=== PATIENT | female | born 1985 | race Caucasian/White ===

== ENCOUNTER 2019-06-26 06:03 | Inpatient (IN) | payer BC ==
[~2019-06-26 06:03] MED LIST: Buffered Lidocaine 1% SYRIN* 1 ML/SYRINGE INTRADERM ONE; Lactated Ringers 1000 ML Bag* 1,000 ML IV SCH; Sodium Citrate/Citric Acid* 15 ML UDC PO ONE
[2019-06-26] MEDS ORDERED: ceFOXitin 2 GM IVPREMIX* 2 GM/50 ML BAG IVPB ONE (07:00)
[2019-06-26] MEDS ORDERED: Lactated Ringers 1000 ML Bag* 1,000 ML IV SCH ×2 (07:00→10:00)
[2019-06-26 07:07] LABS: Urine Benzodiazepine Screen None Detected (None Detect); Urine Opiates Screen None Detected (None Detect)
[2019-06-26] MEDS ORDERED: OXYTOCIN* 10 UNITS/ML 1 ML VIAL ONE ×2 (07:38→08:39)
[2019-06-26] MEDS ORDERED: Morphine PF AMP (0.5MG/ML)* 5 MG/10 ML AMP ONE (07:38)
[2019-06-26] MEDS ORDERED: diPHENhydraMINE IV* 50 MG/ML 1 ml VIAL (BENADRYL) ONE (08:39)
[2019-06-26] MEDS ORDERED: Bupivacaine 0.5% SDV PF* 30ML VIAL ONE (08:39)
[2019-06-26] MEDS ORDERED: Ondansetron INJ* 2 MG/ML VIAL ONE (08:39)
[2019-06-26] MEDS ORDERED: fentaNYL* 50 MCG/ML 2 ML VIAL (100 MCG VIAL) IV PRN (08:48)
[2019-06-26] MEDS ORDERED: Levalbuterol 0.63MG/3ML NEB* UNIT OF USE INH PRN (08:48)
[2019-06-26] MEDS ORDERED: Naloxone* 0.4 MG/ML 1 ML VIAL IV PRN ×2 (08:48→08:56)
[2019-06-26] MEDS ORDERED: Ketorolac INJ* 30 MG/ML 1 ML VIAL ONE (08:50)
[2019-06-26] MEDS ORDERED: diPHENhydraMINE IV* 50 MG/ML 1 ml VIAL (BENADRYL) IV PRN (08:56)
[2019-06-26] MEDS ORDERED: DiMENhydriNATE IV* 50 MG/ML VIAL IV PUSH PRN (08:56)
[2019-06-26] MEDS ORDERED: HYDROcodone/ACETAMIN 5-325 MG* 1 TAB PO PRN ×2 (08:56)
[2019-06-26] MEDS ORDERED: Nalbuphine* 10 MG/ML 1 ML VIAL IV PRN (08:56)
[2019-06-26] MEDS ORDERED: Scopolamine 1.5 mg* PATCH TRANSDERM PRN (08:56)
[2019-06-26] MEDS ORDERED: PROCHLORPERAZINE INJ 5 MG/ML 2 ML VIAL IV PRN (08:56)
[2019-06-26] MEDS ORDERED: Ondansetron INJ* 2 MG/ML VIAL IV PRN (08:56)
[2019-06-26] MEDS ORDERED: Ketorolac INJ* 30 MG/ML 1 ML VIAL IV SCH (09:00)
[2019-06-26] MEDS ORDERED: Dibucaine 1% 28.35 GM TUBE PR PRN (09:12)
[2019-06-26] MEDS ORDERED: RHO D Immune Globulin (HUMAN)* 300 MCG = 1,500 I.U. INJ IM ONE (09:12)
[2019-06-26] MEDS ORDERED: Zolpidem TAB* 5 MG PO PRN (09:12)
[2019-06-26] MEDS ORDERED: Witch Hazel PAD* JAR TOPICAL PRN (09:12)
[2019-06-26] MEDS ORDERED: Glycerin ADULT SUPP PR PRN (09:12)
[2019-06-26] MEDS ORDERED: Tetan/Diph/Pertus SYR(Tdap)* 0.5 ML SYR(BOOSTRIX) use SYR contains LATEX IM ONE (09:12)
[2019-06-26] MEDS ORDERED: Oxytocin in LR* 20 UNITS/1,000 ML BAG IVPB SCH (10:00)
--- NOTE | 2019-06-26 10:39 | OP ---
DATE OF OPERATION: 06/26/19 - ROOM #116 DATE OF : 89 SURGEON: Alf Lynch MD FOOD ORDER EXPEDITER: Shanna Devi CNM ANESTHESIA: Spinal with Duramorph. PRE-OP DIAGNOSIS: Previous section and desires permanent sterilization. POST-OP DIAGNOSIS: Previous section and desires permanent sterilization. OPERATIVE PROCEDURES: Low transverse section and bilateral tubal ligation. FINDINGS: This is a 34-year-old 5, para 2 with a previous section, who desired to have no more children after this one. At the time of , she had a viable male, Apgars were 9 and 9. Weight was 7 pounds and 12 ounces. Weight was 3529 grams. Normal appearing uterus, fallopian tubes and ovaries. Of note, there was a double nuchal cord and a true knot in the cord. DESCRIPTION OF PROCEDURE: The patient was identified and procedure identified as a low transverse section. The patient was taken to the operating room and prepped and draped in the usual fashion in the left lateral recumbent position under spinal anesthesia. A Pfannenstiel incision made through the old incision and carried down through fat, fascia, and peritoneum. A transverse incision was made in the lower uterine segment and extended laterally using the blunt dissection. The above infant was delivered through the incision with ease. The cord was doubly clamped and cut, and the infant was handed to the awaiting after school program assistant. Cord blood was obtained. Placenta delivered manually. The uterus was wiped out with a wet lap sponge. The uterine incision was then closed using 0 Polysorb in a running fashion. A second layer was used to imbricate the first layer. Good hemostasis was verified. The uterus was closed with 0 Polysorb in a running fashion. A second layer was used to imbricate the first layer. Good hemostasis was verified. The right fallopian tube was grasped at its fimbriated end and ligated x2 and the fimbria on the right was excised. The same procedure was carried on left after following it out to its fimbriated end. Good hemostasis was verified. The uterus was placed back into the abdominal cavity. All sites of operation including the tubal sites were reinspected. Found to be hemostatic. The peritoneum was then closed using 3-0 Polysorb in a running fashion. Good hemostasis in the subrectus layers. The fascia was closed using 0 Polysorb in a running fashion. Hemostasis was achieved in the subcu. Copious irrigation was utilized and suctioned out. The subcutaneous tissue was closed using 3-0 Vicryl in a simple fashion and the skin was closed in a subcuticular using 4-0 Monocryl. All sponge and instrument counts were correct and the patient returned to the recovery room in stable condition. [id number]/[facility] #: [id number] [facility]
[2019-06-26] MEDS: Simethicone TAB* 80 MG TAB.CHEW PO SCH ×3 (15:03→21:02)
[2019-06-26] MEDS: Ketorolac INJ* 30 MG/ML 1 ML VIAL IV SCH ×2 (15:07→21:01)
[2019-06-26] MEDS: Docusate CAP* 100 MG PO SCH ×2 (15:07→21:02)
[2019-06-26] MEDS: Acetaminophen TAB* 325 MG PO SCH ×2 (16:41→18:20)
[2019-06-27] MEDS ORDERED: oxyCODONE/Acetamin 5/325 MG* TAB PO PRN ×2
[2019-06-27] MEDS: Acetaminophen TAB* 325 MG PO SCH (02:29)
[2019-06-27] MEDS: Ketorolac INJ* 30 MG/ML 1 ML VIAL IV SCH ×2 (03:03→08:56)
[2019-06-27] MEDS ORDERED: Nicotine PATCH 7 MG/24 HR* PATCH TRANSDERM SCH (08:00)
[2019-06-27 08:06] LABS: ABS Eosinophils 0.1 10^3/ul (0-0.6); ABS Lymphocytes 1.4 10^3/ul (1.0-4.8); ABS Monocytes 0.7 10^3/ul (0-0.8); ABS Neutrophils 9.6 10^3/ul (1.5-7.7); Eosinophil % 1.2 %; Hematocrit 28 % (35-47); Hemoglobin 9.7 g/dL (12.0-16.0); Lymphocyte % 11.7 %; Mean Corpuscular HGB Conc 35 g/dL (31-36); Mean Corpuscular Hemoglobin 31 pg (27-31); Mean Corpuscular Volume 89 fL (80-97); Platelet Count 184 10^3/uL (150-450); Red Blood Count 3.17 10^6 /uL (3.70-4.87); Red Cell Distribution Width 14 % (10-15); White Blood Count 11.9 10^3/uL (3.5-10.8)
[2019-06-27] MEDS: Simethicone TAB* 80 MG TAB.CHEW PO SCH ×4 (08:56→22:30)
[2019-06-27] MEDS: Ferrous Gluconate TAB* 324 MG TAB PO SCH ×2 (08:56→21:36)
[2019-06-27] MEDS: Docusate CAP* 100 MG PO SCH ×3 (08:56→21:36)
[2019-06-27] MEDS ORDERED: Influenza VAC *QUAD* 2019-20* 0.5 ML SYRINGE IM ONE (09:00)
[2019-06-27] MEDS: Ibuprofen TAB* 600 MG PO PRN ×2 (16:15→22:26)
[2019-06-27] MEDS: Acetaminophen TAB* 325 MG PO PRN ×2 (17:23→21:36)
[2019-06-28 08:02] VITALS: BP 135/78
[2019-06-28] MEDS: Docusate CAP* 100 MG PO SCH (08:18)
[2019-06-28] MEDS: Ibuprofen TAB* 600 MG PO PRN (08:18)
[2019-06-28] MEDS: Simethicone TAB* 80 MG TAB.CHEW PO SCH (08:18)
[2019-06-28] MEDS: Ferrous Gluconate TAB* 324 MG TAB PO SCH (08:18)
[2019-06-29] MEDS ORDERED: Scopolamine PATCH Remove* 1 NOTE MISC PATCH OFF PRN (08:57)
== END 2019-06-28 10:40 | disposition home or self-care (01) | DRG 540 ==
LOC: AA 06:03 → UNDOADMIN 06:03 → MCHOB 06:21
PROVIDERS: ADMIT Obstetrics & Gynecology; ATTEND Obstetrics & Gynecology
PROC: 0UB70ZZ Excision of Bilateral Fallopian Tubes, Open Approach (ICD-10-PCS; 2019-06-26)
PROC: 10D00Z1 Extraction of Products of Conception, Low, Open Approach (ICD-10-PCS; principal; 2019-06-26 07:45)
DX: O34.211 Maternal care for low transverse scar from previous cesarean delivery (principal); O99.334 Smoking (tobacco) complicating childbirth; F17.210 Nicotine dependence, cigarettes, uncomplicated; O99.284 Endocrine, nutritional and metabolic diseases complicating childbirth; E07.9 Disorder of thyroid, unspecified; O69.2XX0 Labor and delivery complicated by other cord entanglement, with compression, not applicable or unspecified; O99.344 Other mental disorders complicating childbirth; F32.9 Major depressive disorder, single episode, unspecified; Z30.2 Encounter for sterilization; Z3A.39 39 weeks gestation of pregnancy; Z37.0 Single live birth
CPT/HCPCS: 36415; 80307; 85025; 85461; 86900; 86901; 88302; 90686; 90715; A9270-GY; J0694; J1200; J1885; J2405; J2590; J2790; J3490